=== PATIENT | female | born 1990 | race Caucasian/White ===

== ENCOUNTER 2025-01-30 23:00 | Inpatient (IN) | payer OTHER, SELFPAY ==
[2025-01-30 18:59] VITALS: BP 150/110
[2025-01-30 19:31] LABS: % Basophils 0.4 % (0-2); % Eosinophils 2.1 % (0-6); % Immature Granulocytes 0.4 % (0-0.5); % Monocytes 8.1 % (1.7-9.3); Absolute Eosinophils 0.2 10^3/uL (0-0.7); Absolute Lymphocytes 2.5 10^3/uL (1.2-3.4); Absolute Monocytes 0.7 10^3/uL (0.1-0.6); Absolute Neutrophils 4.7 10^3/uL (1.4-6.5); Hematocrit 38.7 % (37.0-47.0); Hemoglobin 12.7 g/dL (12.0-16.0); Mean Corp Hgb Conc. 32.8 g/dL (33.0-37.0); Mean Corpuscular Hgb 27.7 pg (27.0-31.0); Mean Corpuscular Volume 84.5 fL (81.0-99.0); Mean Platelet Volume 10.3 fL (7.4-10.4); Nucleated Red Blood Cells % 0 %; Platelet Count 315 10^3/uL (130-400); Red Blood Cell Count 4.58 10^6/uL (4.20-5.40); Red Cell Dist. Width 14.6 % (11.5-14.5); White Blood Cell Count 8.2 10^3/uL (4.8-10.8)
[2025-01-30 19:39] LABS: Lactic Acid 0.9 mmol/L (0.7-2.0)
[2025-01-30 19:42] LABS: HCG, Serum Qualitative Screen Negative
[2025-01-30 19:47] LABS: ALT (SGPT) 509 U/L (0-35); AST (SGOT) 102 U/L (14-36); Alkaline Phosphatase 218 U/L (38-126); Blood Urea Nitrogen 9 mg/dl (7-17); Calcium 9.2 mg/dl (8.4-10.2); Carbon Dioxide 22 mmol/L (22-30); Chloride 111 mmol/L (98-107); Glucose 104 mg/dl (70-99); Lipase 134 U/L (23-300); Potassium 4.2 mmol/L (3.5-5.1); Sodium 141 mmol/L (135-145); Total Bilirubin 2.5 mg/dl (0.2-1.3); Total Protein 7.1 g/dl (6.3-8.2); eGFR > 60.00
[2025-01-30 19:50] LABS: Urine Albumin Negative (Neg - Trace); Urine Bilirubin Negative (Negative); Urine Character Clear (Clear); Urine Color Yellow; Urine Glucose Negative (Negative); Urine Ketone Negative (Negative); Urine Leukocyte Negative (Negative); Urine Nitrite Negative (Negative); Urine Occult Blood Negative (Negative); Urine Specific Gravity 1.005 (<1.030); Urine Urobilinogen Negative (Neg - 1+)
[2025-01-30] MEDS: TORADOL 15 MG IV (21:14)
[2025-01-30] MEDS: NSS 1000 IV (21:15)
[2025-01-30 21:39] LABS: Direct Bilirubin 1.8 mg/dl (0.0-0.4)
--- NOTE | 2025-01-30 21:48 | ED.GENMED ---
History of Present Illness
General
Chief Complaint: Post Operative Problem(s)
Source: patient
Exam Limitations: none
Time Seen by Provider: 01/30/25 20:44
Nursing documentation reviewed up to this point in time: agreed with
History of Present Illness
History of Present Illness:
Patient is a 34-year-old female currently 4 days postop laparoscopic cholecystectomy presenting to the emergency department with worsening abdominal discomfort and prior. Patient states cholecystectomy was performed on at [facility] with
Dr. Maza. Surgery was uncomplicated and patient was discharged on Thursday. She states that yesterday she started with pruritus of her hands and face which was worse today. She also reports epigastric/right upper quadrant pain with radiation to
back. Patient spoke with her general surgeon who referred her to the emergency department with concerns of a CBD stone and need for ERCP. Patient denies any fever, chills, or vomiting. No current nausea. No chest pain or shortness of breath.
Patient states that her incisions seem to be healing well.
Patient's general surgeon/GI doctor does not perform ERCPs.
Review of Systems
Review of Systems
Allergies reviewed?: Yes
All Other Systems: ROS reviewed and negative except as documented in HPI and ROS
Phy Exam
Physical Exam
Physical Exam:
Vitals: Hypertensive, otherwise vital signs stable. Afebrile
General: Patient is well appearing, no acute distress. Nontoxic appearing
Skin: Laparoscopic abdominal incision sites C/D/I without evidence of surrounding cellulitis. No rash. No jaundice
Head: Normocephalic, atraumatic
Eyes: Sclera nonicteric. EOMs intact. No nystagmus.
Throat: Protecting airway
Neck: Normal ROM, no cervical spine tenderness, no meningismus
Cardiac: Regular rate and rhythm, no murmurs.
Pulm: Normal respiratory effort, no wheezes, rales, rhonchi heard on exam
.
Abdomen: Abdomen soft. Mild tenderness in right upper quadrant. No rebound tenderness or guarding. Well-healing surgical scars.
Extremities: No evidence of cyanosis or edema. DP pulses palpable bilaterally
Neuro: AAOx3. Grossly intact.
Psychiatric: Normal affect.
Course
Orders/Labs/Results
Orders:
Orders
01/30/25 19:04
Test Result ONCE
01/30/25 19:11
Complete Blood Count/With Diff Urgent
Comprehensive Metabolic Panel Urgent
Direct Bilirubin Urgent
Comment: ADD ON
HCG, Serum Qualitative Screen Urgent
Lactic Acid Urgent
Lipase Urgent
Urinalysis Reflex To Culture Urgent
Date Specimen was Collected: 01/30/25
Time Specimen was Collected: 19:04
Blood Culture Urgent
YOMI Source: Blood/Venous
Specimen Description:
Date Specimen was Collected: 01/30/25
Time Specimen was Collected: 19:04
01/30/25 19:32
US Abdomen Complete/Upper Urgent
Comment:
Reason For Exam: epigastric pain, dark urine, concern for cbd stone
01/30/25 20:54
Add On- LAB Urgent
Tests Added?: direct bili
0.9% Sodium Chloride 1000 ml [Nss] 1,000 ml IV BOLUS
Ketorolac [Toradol] 15 mg IV NOW STA
01/30/25 21:48
Diphenhydramine [Benadryl] 25 mg PO NOW STA
01/30/25 22:11
Morphine Sulfate 4 mg IV NOW STA
Ondansetron Injectable [Zofran] 4 mg IV NOW STA
01/30/25 22:21
Admit/Transfer Patient As Directed
Co-Sign Provider:
Level of Care: Inpatient admission
Assign to:: Medical/Surgical
Physician / Group: Kamilla
Diagnosis: biliary obstruction
Reason for Hospitalization: biliary obstruction
Expected length of stay greater than two midnights?: Yes
ELOS- Estimated Length of Stay in days: 2
I certify the patient meets the requirements for IP care: Yes
PRN Pain Medication Management As Directed
May give lesser potent ordered pain med per pt: Yes
preference::
Protocol:: Medication orders for pain may be administered in a
manner that supports deferring to patient preference
when the pt is:
- Requesting an ordered lesser potent pain medication.
Least to most potent pain medications are defined
as: acetaminophen < NSAID < tramadol < opioids
(morphine, oxycodone, hydromorphone).
- Requesting a lesser dose of the same medication IF
ORDERED.
- Requesting a less intrusive route of administration
if both routes are prescribed by the provider (PO <
IV).
01/30/25 22:22
Code Status As Directed
Resuscitation Status: Full Code
Abnormal Lab Results
01/30/25
19:11
MCHC 32.8 L g/dL
(33.0-37.0)
RDW 14.6 H %
(11.5-14.5)
Absolute Monos (auto) 0.7 H 10^3/uL
(0.1-0.6)
Chloride 111 H mmol/L
(98-107)
Glucose 104 H mg/dl
(70-99)
Total Bilirubin 2.5 H mg/dl
(0.2-1.3)
Direct Bilirubin 1.8 H mg/dl
(0.0-0.4)
AST 102 H U/L
(14-36)
ALT 509 H* U/L
(0-35)
Alkaline Phosphatase 218 H U/L
(38-126)
01/30/25 19:11
01/30/25 19:11
Vital Signs
Initial and Last Documented VS:
Initial Vital Signs
Temp Pulse Resp BP Pulse Ox
98.1 F 74 20 150/110 99
01/30/25 18:59 01/30/25 18:59 01/30/25 18:59 01/30/25 18:59 01/30/25 18:59
Last Documented Vital Signs
Temp Pulse Resp BP Pulse Ox
98.1 F 58 18 134/64 98
01/30/25 22:04 01/30/25 22:04 01/30/25 22:04 01/30/25 22:04 01/30/25 22:04
MDM/Problems Addressed
Differential Diagnosis Includes:
Not limited to: cholestasis, choledocholithiasis, cholangitis, post-operative complication, etc
MDM/Problems Addressed:
34-year-old female currently 3 days postop laparoscopic cholecystectomy presenting with worsening upper abdominal pain and pruritus x 2 days. No associated fever or vomiting. Sent by general surgeon, Dr. Maza at [place] with concern for
possible CBD stone. Hypertensive on arrival, otherwise vital stable. She is afebrile. Physical exam as above. Patient has well-healing laparoscopic abdominal incisions without signs of surrounding cellulitis. She has mild to moderate tenderness
in right upper quadrant without rebound tenderness or guarding. Cardio/pulmonary assessment unremarkable. Given recent cholecystectomy and new onset abdominal pain prior to/concern for cholestasis and possible obstructing CBD stone. Labs and
ultrasound obtained in triage. CBC without clinically significant abnormalities. No leukocytosis. CMP reveals elevated total bilirubin to 2.5 as well as elevated liver enzymes including AST 102 and ALT 509 with an alkaline phosphatase of 218.
Lipase is normal. Urine unremarkable. Ultrasound report pending. Will give IV fluids and treat pain.
Update: Ultrasound report shows a distended CBD of 9.5 mm. Concern for choledocholithiasis. Pruritus likely secondary to cholestasis. Patient will require admission for MRCP and possible ERCP. No evidence of current infectious process. Will
hold antibiotics this time. Patient accepted to hospitalist service in stable condition. GI aware.
Chronic conditions affecting care:
Recent cholecystectomy
Acute Exacerbation and/or Progression of Chronic Illness:
Acute cholestasis with concern for choledocholithiasis
*Radiology
Radiology exam reviewed: radiology read reviewed
*Pulse Oximetry
Patient hypoxic: no
*EKG
Interpreted by ED Provider?: NA
*Land Commissioner Interpretation
Rate: Land Commissioner- N/A
*Critical Care Note
Total Time (30-74mins, 75-104mins- exclusive of procedures): Not Applicable
Data Reviewed
Review of Other/Old Records Reveals: Labs (Labs performed 01/27/2025 at [facility]-total bilirubin 1.0, direct bilirubin 0.5, ALT 491, AST 461, alk phos 192)
Patient Management
Discussion with other providers: Hospitalist and Travel Ticketing Reviewer (Case discussed with GI)
Escalation/DeEscalation of care consider admission/obs:
Admit for MRCP, possible ERCP
ED Attending Note
-
Portions of this chart may have been created with voice recognition software.� Occasional wrong word or��sound alike� substitutions may have occurred due to the inherent limitations of voice recognition software.
Discharge Plan
Departure
Patient Disposition: Admit
Date of Disposition: 01/30/25
Time of Disposition: 21:57
Presentation/result/management discussed w/ accepting MD/DO: Hospitalist
Discharge Problem:
Abdominal pain, Elevated transaminase level, Hyperbilirubinemia
Interventions
Interventions:
*Risk Screen - Suicide Last Done: 01/30/25 21:32
*General Assessment Last Done: 01/30/25 18:59
*Neglect/Abuse Screening Last Done: 01/30/25 21:32
*ED- Fall Risk Assessment Last Done: 01/30/25 21:32
*ED COVID-19 Vaccine History Last Done: 01/30/25 21:32
JW-Srohgk-Qrqdmopcab Assessment Last Done: 01/30/25 21:32
ED-Skin Assessment Last Done: 01/30/25 21:32
[2025-01-30] MEDS: BENADRYL 25 MG PO (22:02)
[2025-01-30 22:04] VITALS: BP 134/64
--- NOTE | 2025-01-30 22:32 | HPS.HSE ---
Family Physician
-
Family Physician: Jeovany Knight,DO
Chief Complaint
-
Postoperative abdominal pain
History of Present Illness
This is a 34-year-old female with past medical history significant for hypertension, GERD, obesity status post cholecystectomy 4 days ago at [facility] by Dr. Maza who presents to the emergency department with pruritus and abdominal discomfort.
Patient reported that she was discharged home on oxycodone which she has not had to take. She did not require any antibiotics after discharge. She was doing well up until 2 days ago when she started having upper abdominal/epigastric discomfort
with pruritus. She denies any fevers or chills. She denies any nausea or vomiting. She reported symptoms to Dr. Morales referred for admission for likely MRCP.
In the emergency department she was afebrile, blood pressure was 130/64 with a pulse of 68 and she was satting 98% on room air.
CBC was completely normal. Electrolytes BUN/creatinine were all normal. Lactic acid was normal. Total bilirubin was elevated at 2.5, direct bilirubin 1.8. AST 102 ALT 500 and alk phos was also elevated. UA was unremarkable.
Abdominal ultrasound showing distended common bile duct, 9.5 mm. Hepatosplenomegaly. Coarse hepatic echotexture with marked diminished sound transmission, suggesting diffuse fibrofatty changes. Retroperitoneum largely obscured by bowel gas.
Medical History
Past Medical History
Past Medical History: Reports GERD, HTN and Psychiatric
Past Surgical History: Reports Cholecystectomy, Tonsilectomy and Other (Maxillofacial/jaw surgery)
Social History
Tobacco: Smoker
Alcohol: None
Drug: None
Family History
Family History: Not pertinent
Allergies / Home Medications
Allergies reflects when Allergies were last updated in [employer].
Home Medications with original date entered in [employer]
Allergy/Medication List:
Allergies
Allergy/AdvReac Type Severity Reaction Status Date / Time
No Known Allergies Allergy Unverified 01/30/25 18:59
Lexapro 20 mg tablet, 20 mg p.o. daily
Losartan 100 mg tablet, 100 mg p.o. daily
Omeprazole 20 mg tablet, 20 mg p.o. daily,
Review of Systems
-
History Source: Patient
Constitutional: Reports No Symptoms
EENT: Reports No Symptoms
Respiratory: Reports No Symptoms
Cardiac: Reports No Symptoms
Abdomen/GI: Reports Abdominal Pain
: Reports No Symptoms
Musculoskeletal: Reports No Symptoms
Skin: Reports Itching
Neurological: Reports No Symptoms
Endocrine: Reports No Symptoms
Hematologic/Lymphatic: Reports No Symptoms
Psych: Reports No Symptoms
Physical Exam
Vital Signs
Vital Signs
Temp Pulse Resp BP Pulse Ox
98.1 F 58 18 134/64 98
01/30/25 22:04 01/30/25 22:04 01/30/25 22:04 01/30/25 22:04 01/30/25 22:04
Physical Exam
General: Well Developed, Well Nourished and Conversant
HEENT: NormoCephalic, Anicteric, Moist mucous membranes and Atraumatic
Respiratory: Clear
Cardiac: S1/S2 and Regular Rhythm
Breast: Deferred by me
GI: Soft, Non Distended, Normal Bowel Sounds and Tender
Rectal: Deferred by Provider
Genito-urinary: Deferred by me
Musculoskeletal: No Clubbing, No Cyanosis and No Edema
Skin: Warm
Neuro: AO x 3 and Nonfocal/grossly intact
Hematologic/Lymphatic: No Lymphadenopathy
Psych: Calm
Laboratory Results
-
01/30/25 19:11
01/30/25 19:11
Laboratory Results
Lactic Acid 0.9 mmol/L (0.7-2.0) 01/30/25 19:11
Total Bilirubin 2.5 mg/dl (0.2-1.3) H 01/30/25 19:11
AST 102 U/L (14-36) H 01/30/25 19:11
ALT 509 U/L (0-35) H* 01/30/25 19:11
Alkaline Phosphatase 218 U/L (38-126) H 01/30/25 19:11
Lipase 134 U/L (23-300) 01/30/25 19:11
Data Reviewed
-
Ultrasound: Report Reviewed by me
Lab Data: Labs Reviewed by me
Old Records: Reviewed
Impression/Plan
-
IMPRESSION:
This is a 34-year-old female who is 4 days status post cholecystectomy presenting to the emergency department with epigastric discomfort radiating to the back and pruritus found to have a cholestatic picture with biliary ductal dilation consistent
with common bile duct obstruction. Lipase is negative. LFTs marginally abnormal. Total bilirubin was 2.5 direct of 1.8. Pain is improved with analgesics and patient is well-appearing without any fevers. She has no leukocytosis. No evidence of
acute cholangitis at this time.
PLAN:
Cholestasis with pruritus - unlikely biloma, possibly choledocholithiasis with a left behind stone.
- admit to med/surg
- NPO after midnight
- mrcp, possible ercp
- pain control, benadryl, antiemetics and IV fluids
- continue home antihypertensives for now
- trend lefts
- GI consulted and aware
DVT PPX - lovenox sq
Code status - Full Code
[2025-01-30] MEDS: ZOFRAN 4 MG IV (22:42)
[2025-01-30] MEDS: MORPHINE SULFATE 4 MG IV (22:42)
[2025-01-30 22:50] VITALS: BMI 60.1
[2025-01-31] VITALS (8 sets, daily range): BP systolic 104–163; BP diastolic 49–81; BMI 58.7
[2025-01-31] MEDS: MORPHINE SULFATE 2 MG IV ×4 (01:16→23:15)
[2025-01-31] MEDS: LR 1000 IV ×2 (01:16→12:31)
[2025-01-31] MEDS: TORADOL 15 MG IV ×3 (04:35→19:09)
[2025-01-31] MEDS: BENADRYL 25 MG IV ×2 (04:39→10:19)
[2025-01-31 05:40] LABS: Hematocrit 34.5 % (37.0-47.0); Hemoglobin 11.5 g/dL (12.0-16.0); Mean Corp Hgb Conc. 33.3 g/dL (33.0-37.0); Mean Corpuscular Hgb 28.3 pg (27.0-31.0); Mean Platelet Volume 10.3 fL (7.4-10.4); Platelet Count 263 10^3/uL (130-400); Red Blood Cell Count 4.06 10^6/uL (4.20-5.40); Red Cell Dist. Width 14.6 % (11.5-14.5); White Blood Cell Count 6.9 10^3/uL (4.8-10.8)
[2025-01-31 05:54] LABS: ALT (SGPT) 373 U/L (0-35); AST (SGOT) 66 U/L (14-36); Albumin 3.5 g/dl (3.5-5.0); Alkaline Phosphatase 212 U/L (38-126); Blood Urea Nitrogen 7 mg/dl (7-17); Calcium 8.6 mg/dl (8.4-10.2); Carbon Dioxide 20 mmol/L (22-30); Chloride 114 mmol/L (98-107); Direct Bilirubin 0.8 mg/dl (0.0-0.4); Estimated Creatinine Clearance > 125 ml/min; Glucose 103 mg/dl (70-99); Magnesium 1.8 mg/dl (1.6-2.3); Potassium 4.3 mmol/L (3.5-5.1); Sodium 138 mmol/L (135-145); Total Bilirubin 1.5 mg/dl (0.2-1.3); Total Protein 6.2 g/dl (6.3-8.2); eGFR > 60.00
--- NOTE | 2025-01-31 06:58 | CON.GI ---
Addendum entered and electronically signed by Wagner Hensley MD 01/31/25 13:41:
I saw and examined the patient.
The CELLAR PACKER or PA's note was reviewed and I agree with the note.
Comment: 34yo morbidly obese female presented to [facility] with epigastric/back pain and had lap rudolph 01/26. After d/c she noted dark urine and itching. She also had some recurrence of back pain. Denies f/c, n/v. Her surgeon directed her to ER
since [facility] does not offer ERCP. TB 2.5, AST 102, ALT 509, AP 218 on admission. Normal WBC. US show CBD 9.5mm distended. MRCP shows 3mm distal CBD stone. Pain controlled with meds
REC:
Plan ERCP when available to treat choledocholithiasis
Zo no need for abx with normal WBC, afebrile, benign abdomen
Trend LFTs
Addendum entered and electronically signed by TAMEKA Patiño 01/31/25 11:30:
MRI with small stone in distal CBD with mild extrahepatic biliary dilatation -- will need ERCP --possible later today if time allow.
Original Note:
Consultation
-
Date/Time Consultation Requested: 01/31/25 0100
Date/Time Consultation Performed: 01/31/25 0730
Requesting Provider: Roxi Kohli MD
Performing Provider: TAMEKA Bay, Wagner Hensley MD
Reason for Consultation: abdominal pain increased LFT's
Medical History
Chief Complaint / HPI
Chief Complaint: abdominal pain
History of Present Illness:
Pt is a 34yo with hx GERD, HTN, axiety, obesity with Zepbound use and 90 lbs wt loss with recent admission to [place] 01/25-01/27 with cholecystectomy 01/26 prior to admission. After being home for 2 days developed abdominal pain with itching. On
admission normal WBC without fever and bili 2.5, AST 102, ALT 509, alk phos 218 with lipase 134. 5/12 US with Hepatosplenomegaly. Coarse hepatic echotexture with marked diminished sound transmission, suggesting diffuse fibrofatty changes. Distended
common bile duct, 9.5 mm. Retroperitoneum largely obscured by bowel gas.
In reviewed with patient she admits to nausea and vomiting prior to rudolph now improved. She states pain is 6/10 then 1/10 after pain meds. Pain in RUQ. She also admits to dark urine and roger stools for 2 day with itchiness. She denies
dysphagia, GERD, or rectal bleeding. Was taking Motrin and Tylenol for post-op pain.
Past Medical History
Past Medical History: GERD, HTN, Psychiatric (anxiety ) and Other (obesity )
Past Surgical History: Cholecystectomy (4 days prior to admission at [place])
Social History
Tobacco: Smoker (social )
Alcohol: None
Drug: None
Personal:
Living: With Family
Family History
Family History: Other (mother with hx rudolph )
Allergies / Home Medications
Allergy/AdvReac Type Severity Reaction Status Date / Time
No Known Allergies Allergy Unverified 01/30/25 18:59
�Medication �Instructions �Recorded
escitalopram oxalate 20 mg tablet 20 mg PO HS 01/30/25
(Lexapro)
fexofenadine 180 mg tablet 180 mg PO HS 01/30/25
letrozole 2.5 mg tablet 5 mg PO DAILY 01/30/25
losartan 100 mg tablet 100 mg PO HS 01/30/25
omeprazole 20 mg capsule,delayed 20 mg PO HS 01/30/25
release
tirzepatide (weight loss) 10 10 mg SC QWEEK 01/30/25
mg/0.5 mL subcutaneous pen
injector (Zepbound)
Review of Systems
-
History Source: Patient
Constitutional: Reports Weight Loss ( 90 lb with zepbound )
EENT: Reports No Symptoms
Respiratory: Reports No Symptoms
Abdomen/GI: Reports Abdominal Pain and Other (roger stools )
: Reports Dark Urine
Skin: Reports Itching
Neurological: Reports No Symptoms
Endocrine: Reports No Symptoms
Hematologic/Lymphatic: Reports No Symptoms
Vital Signs
Temp Pulse Resp BP Pulse Ox
97.8 F 63 18 141/81 98
01/31/25 01:03 01/31/25 01:03 01/31/25 01:03 01/31/25 01:03 01/31/25 01:03
Physical Exam
Exam
General: Well Developed, Well Nourished and No Apparent Distress
HEENT: Normocephalic and Anicteric
Respiratory: Clear
Cardiac: Regular Rhythm
GI: Soft, Non Distended, Tender (minimal after pain meds ) and Other (post surg sites intact )
Musculoskeletal: No Clubbing and No Cyanosis
Skin: Warm and Dry
Neuro: Awake, Alert and AO x 3
Psych: Calm
Results
WBC 6.9 10^3/uL (4.8-10.8) 01/31/25 05:12
Hgb 11.5 g/dL (12.0-16.0) L 01/31/25 05:12
Hct 34.5 % (37.0-47.0) L 01/31/25 05:12
MCV 85.0 fL (81.0-99.0) 01/31/25 05:12
Plt Count 263 10^3/uL (130-400) 01/31/25 05:12
Absolute Neuts (auto) 4.7 10^3/uL (1.4-6.5) 01/30/25 19:11
Sodium 138 mmol/L (135-145) 01/31/25 05:12
Potassium 4.3 mmol/L (3.5-5.1) 01/31/25 05:12
Chloride 114 mmol/L (98-107) H 01/31/25 05:12
Carbon Dioxide 20 mmol/L (22-30) L 01/31/25 05:12
BUN 7 mg/dl (7-17) 01/31/25 05:12
Creatinine 0.6 mg/dL (0.6-1.0) 01/31/25 05:12
Calcium 8.6 mg/dl (8.4-10.2) 01/31/25 05:12
Total Bilirubin 1.5 mg/dl (0.2-1.3) H D 01/31/25 05:12
AST 66 U/L (14-36) H 01/31/25 05:12
ALT 373 U/L (0-35) H 01/31/25 05:12
Alkaline Phosphatase 212 U/L (38-126) H 01/31/25 05:12
Lipase 134 U/L (23-300) 01/30/25 19:11
Diagnostic Image Results:
01/30/25 US Abdomen Complete/Upper
Hepatosplenomegaly. Coarse hepatic echotexture with marked diminished sound transmission, suggesting diffuse fibrofatty changes. Distended common bile duct, 9.5 mm. Retroperitoneum largely obscured by bowel gas.
Prior GI Procedures:
EGD:
Colonoscopy:
Assessment / Plan
-
Pt is a 34yo with hx GERD, HTN, anxiety, obesity with Zepbound use and 90 lbs wt loss with recent admission to [place] 01/25-01/27 with cholecystectomy 01/26 prior to admission. After being home for 2 days developed abdominal pain with itching. On
admission normal WBC without fever and bili 2.5, AST 102, ALT 509, alk phos 218 with lipase 134. 01/30 US with Hepatosplenomegaly. Coarse hepatic echotexture with marked diminished sound transmission, suggesting diffuse fibrofatty changes. Distended
common bile duct, 9.5 mm. Retroperitoneum largely obscured by bowel gas.
bili AST ALT alk phos
01/25 0.8 221 142 122
01/27 1 461 491 192
01/30 2.1 106 481 279
01/30 2.5 102 509 218
01/31 1.5 66 373 212
-abdominal pain
-increased LFT's
-s/p rudolph at [facility] 01/26 prior to admission
other med problems:
-GERD
-HTN
-anxiety
-obesity- with recent wt loss on Zepbound prior to admission
PLAN:
Etiology of symptoms related to retained CBD stone vs other
plan for MRCP if + for retained stone will need ERCP-- timing to be determined
labs as noted above
NPO
IVF
pain control
last Zepbound 3 weeks ago cont to hold
-
-
Thank you for consultation and allowing me to participate in the patient's care. Please call the community relations coordinator GI physician during the after hours with any questions or concerns.
--- NOTE | 2025-01-31 08:02 | W.PN.HOSP.TC ---
Today's Communication/Plan
-
See PN
Assessment / Plan
Assessment / Plan
34yo F with HTN, anxiety, after recent cholecystectomy in [place] 4 days before admision done due to biliary colic came with worsening itchiness and mid-back pain, noted with distended CBD on US and LFT elevation with concern for choledocholithiasis
A/P:
#Choledocholithiasis
No fever, no leukocytosis, no clinical criteria for cholangitis
IVF
NPO pending MRCP
GI consult
benadryl PRN
FOllow LFT
#Mild anemia
OP follow up with PCP
#Essential HTN
#Anxiety
Cont home meds
#Morbid obesity
BMI 58.7
Advise weight loss
DVT ppx hep
FUll code
I have spent at least 57min reviewing chart, test results, communication with consultants and providing direct patient care
Anticipated Discharge: 24 - 48 hours
Subjective/Interval History
-
Date of Service: January 31, 2025
Objective Data
-
Labs:
Laboratory Results
01/31/25
05:12
WBC 6.9
Hgb 11.5 L
Hct 34.5 L
Plt Count 263
Sodium 138
Potassium 4.3
Chloride 114 H
Carbon Dioxide 20 L
BUN 7
Creatinine 0.6
Glucose 103 H
Calcium 8.6
Total Bilirubin 1.5 H D
AST 66 H
ALT 373 H
Alkaline Phosphatase 212 H
Vital Signs:
Vital Signs
Temp Pulse Resp BP Pulse Ox
97.9 F 56 14 104/57 98
01/31/25 07:37 01/31/25 07:37 01/31/25 07:37 01/31/25 07:37 01/31/25 07:37
Review of Systems
-
History Source: Patient
All other systems: Reviewed and negative
Skin: Reports Itching
Physical Exam
-
General: No Apparent Distress
HEENT: Normocephalic
Respiratory: Clear to Auscultation
Cardiac: Regular Rhythm
GI: Soft, Nondistended and Tender (RUQ)
Genito-urinary: No Costovertebral Tender
Musculoskeletal: No Clubbing, No Cyanosis and No Edema
Skin: Warm
Neuro: Awake, Alert, Oriented and AO x 3
Psych: Calm
[2025-01-31] MEDS: ZOFRAN 4 MG IV (08:16)
[2025-01-31] MEDS: HEPARIN 5000 UNITS SC (09:02)
[2025-01-31] MEDS: NSS (PRESERVATIVE FREE) 10 ML IV (09:02)
[2025-01-31] MEDS: PROTONIX IV 40 MG IV (09:02)
--- NOTE | 2025-01-31 14:17 | CM ---
CM reviewed chart, patient seen bedside, initial assessment completed. Patient resides in a two level home, one step to enter, with her , daughter, mother, and father. Patient denies the use of DME, denies VN/SNF history. Patient confirms PCP
Jeovany Knight, [facility]. Patient denies needs at this time. CM will continue to follow for all discharge planning needs.
Plan; home no needs likely
[2025-01-31] MEDS: LEXAPRO 20 MG PO (21:35)
[2025-01-31] MEDS: COZAAR 100 MG PO (21:35)
[2025-02-01] MEDS: LR 1000 IV (01:58)
[2025-02-01] MEDS: TORADOL 15 MG IV (03:43)
[2025-02-01 05:44] LABS: Hematocrit 35.4 % (37.0-47.0); Hemoglobin 11.7 g/dL (12.0-16.0); Mean Corp Hgb Conc. 33.1 g/dL (33.0-37.0); Mean Corpuscular Hgb 27.6 pg (27.0-31.0); Mean Corpuscular Volume 83.5 fL (81.0-99.0); Mean Platelet Volume 10.4 fL (7.4-10.4); Platelet Count 259 10^3/uL (130-400); Red Blood Cell Count 4.24 10^6/uL (4.20-5.40); Red Cell Dist. Width 14.4 % (11.5-14.5); White Blood Cell Count 8.6 10^3/uL (4.8-10.8)
[2025-02-01 06:14] LABS: ALT (SGPT) 297 U/L (0-35); AST (SGOT) 79 U/L (14-36); Albumin 3.3 g/dl (3.5-5.0); Alkaline Phosphatase 217 U/L (38-126); Blood Urea Nitrogen 10 mg/dl (7-17); Calcium 9.1 mg/dl (8.4-10.2); Carbon Dioxide 21 mmol/L (22-30); Chloride 111 mmol/L (98-107); Estimated Creatinine Clearance > 125 ml/min; Glucose 172 mg/dl (70-99); Potassium 4.4 mmol/L (3.5-5.1); Sodium 138 mmol/L (135-145); Total Bilirubin 2.5 mg/dl (0.2-1.3); Total Protein 6.2 g/dl (6.3-8.2); eGFR > 60.00
[2025-02-01 07:32] VITALS: BP 146/71
[2025-02-01] MEDS: TYLENOL 650 MG PO (08:24)
[2025-02-01] MEDS: NSS (PRESERVATIVE FREE) 10 ML IV (08:25)
[2025-02-01] MEDS: PROTONIX IV 40 MG IV (08:25)
[2025-02-01] MEDS: LR IV (08:59)
--- NOTE | 2025-02-01 10:15 | W.PN.GI.CBS2 ---
Today's Communication / Plan
-
Bili up a little 2.5 but AST/ALT stable
Low fat diet
OK for d/c
Check repeat LFTs next week
Assessment / Plan
-
Pt is a 34yo with hx GERD, HTN, anxiety, obesity with Zepbound use and 90 lbs wt loss with recent admission to [facility] 01/25-01/27 with cholecystectomy 01/26 prior to admission. After being home for 2 days developed abdominal pain with itching. On
admission normal WBC without fever and bili 2.5, AST 102, ALT 509, alk phos 218 with lipase 134. 01/30 US with Hepatosplenomegaly. Coarse hepatic echotexture with marked diminished sound transmission, suggesting diffuse fibrofatty changes. Distended
common bile duct, 9.5 mm. Retroperitoneum largely obscured by bowel gas.
bili AST ALT alk phos
01/25 0.8 221 142 122
01/27 1 461 491 192
01/30 2.1 106 481 279
01/30 2.5 102 509 218
01/31 1.5 66 373 212
Impression:
-CBD stone s/p ERCP stone extraction 01/31
-s/p rudolph at [facility] 01/26 prior to admission
Subjective
Subjective
Date of Service: February 01, 2025
Feels well. Denies abd pain
Objective
Data Reviewed
Laboratory Data:
Laboratory Results
02/01/25 05:14
02/01/25 05:14
Laboratory Results
Magnesium 1.8 mg/dl (1.6-2.3) 01/31/25 05:12
Total Bilirubin 2.5 mg/dl (0.2-1.3) H D 02/01/25 05:14
AST 79 U/L (14-36) H 02/01/25 05:14
ALT 297 U/L (0-35) H 02/01/25 05:14
Alkaline Phosphatase 217 U/L (38-126) H 02/01/25 05:14
Lipase 134 U/L (23-300) 01/30/25 19:11
Vital Signs and I&O:
Vital Signs
Temp Pulse Resp BP Pulse Ox
98.1 F 47 16 146/71 98
02/01/25 07:32 02/01/25 07:32 02/01/25 07:32 02/01/25 07:32 02/01/25 07:32
I&O
01/31/25 02/01/25 02/02/25
06:59 06:59 06:59
Intake Total 100 / 100
Balance 100 / 100
Physical Exam
Physical Exam
GI: Soft, Non Distended and Non Tender
--- NOTE | 2025-02-01 10:19 | W.PN.HOSP.TC ---
Today's Communication/Plan
-
dc
Assessment / Plan
Assessment / Plan
34yo F with HTN, anxiety, after recent cholecystectomy in [facility] 4 days before admission done due to biliary colic came with worsening itchiness and mid-back pain, noted with distended CBD on US and LFT elevation with concern for
choledocholithiasis. S/P ERCP on 02/01/25: Choledocholithiasis was found Complete removal was accomplished by biliary sphincterotomy and balloon extraction. Itchiness and RUQ dyscomfort resolved next day. Medically stable to be d/c home as agreed
with GI. LFT with PCP in 1 week recommended in discharge instructions
A/P:
#Choledocholithiasis
No fever, no leukocytosis, no clinical criteria for cholangitis
IVF
GI consult: s/p ERCP and stone extraction
benadryl PRN
FOllow LFT
#Mild anemia
OP follow up with PCP
#Essential HTN
#Anxiety
Cont home meds
#Morbid obesity
BMI 58.7
Advise weight loss
DVT ppx hep
FUll code
I have spent at least 37min reviewing chart, test results, communication with consultants and providing direct patient care
Anticipated Discharge: Today
Subjective/Interval History
-
Date of Service: February 01, 2025
Objective Data
-
Labs:
Laboratory Results
02/01/25
05:14
WBC 8.6
Hgb 11.7 L
Hct 35.4 L
Plt Count 259
Sodium 138
Potassium 4.4
Chloride 111 H
Carbon Dioxide 21 L
BUN 10
Creatinine 0.6
Glucose 172 H
Calcium 9.1
Total Bilirubin 2.5 H D
AST 79 H
ALT 297 H
Alkaline Phosphatase 217 H
Vital Signs:
Vital Signs
Temp Pulse Resp BP Pulse Ox
98.1 F 47 16 146/71 98
02/01/25 07:32 02/01/25 07:32 02/01/25 07:32 02/01/25 07:32 02/01/25 07:32
I&O
01/31/25 02/01/25 02/02/25
06:59 06:59 06:59
Intake Total 100 / 100
Balance 100 / 100
Review of Systems
-
History Source: Patient
All other systems: Reviewed and negative
Skin: Denies Itching
Physical Exam
-
General: No Apparent Distress
HEENT: Normocephalic
Respiratory: Clear to Auscultation
GI: Soft, Nontender and Nondistended
Genito-urinary: No Costovertebral Tender
Musculoskeletal: No Clubbing, No Cyanosis and No Edema
Neuro: Awake, Alert, Oriented and AO x 3
Psych: Calm
--- NOTE | 2025-02-01 10:37 | CM ---
MD entered order for discharge.
Spoke with pt she said she was ready for discharge
Offered VN she declined need.
Her Tone will drive her home.
PLAN Home no needs
--- NOTE | 2025-02-01 10:43 | W.DCSUMMARY ---
Discharge Summary
Discharge Data
Date of Admission: 01/30/25
Date of Discharge: 02/01/25
-
Pending Results: No
Hospital Course
34yo F with HTN, anxiety, after recent cholecystectomy in [facility] 4 days before admission done due to biliary colic came with worsening itchiness and mid-back pain, noted with distended CBD on US and LFT elevation with concern for
choledocholithiasis. S/P ERCP on 02/01/25: Choledocholithiasis was found Complete removal was accomplished by biliary sphincterotomy and balloon extraction. Itchiness and RUQ dyscomfort resolved next day. Medically stable to be d/c home as agreed
with GI. LFT with PCP in 1 week recommended in discharge instructions. As per discussion with GI: Pancreatic parenchymal abnormalities consisting of hyperechoic strands and hyperechoic foci were noted in the pancreatic head will not need additional
follow up
I have spent at least 37min reviewing chart, test results, communication with consultants and providing direct patient care
Patient was managed for:
#Choledocholithiasis
#Mild anemia
#Essential HTN
#Anxiety
#Morbid obesity
Discharge Plan
-
Patient Disposition: Home (Routine Discharge)
Discharge Diagnosis/Procedures: CHoledocholithiasis
Diet: Low Fat
Blood Work: LFT in 1 week with family doctor
Referrals:
Jeovany Knight DO [Family Provider] - in less than 1 week (for blood test (LFT))
Prescriptions:
Continued
omeprazole 20 mg Capsule,Delayed Release(Dr/Ec)
20 mg PO HS
losartan 100 mg Tablet
100 mg PO HS
escitalopram oxalate [Lexapro] 20 mg Tablet
20 mg PO HS
Zepbound 10 mg/0.5 mL Pen Injector
10 mg SC QWEEK
Rx Instructions:
thursday nights
fexofenadine 180 mg tablet
180 mg PO HS
ibuprofen 600 mg tablet
600 mg PO TIDPRN PRN (Reason: pain)
Discharge Orders:
Discharge Patient (As Directed); Ordered 02/01/25
Ordered By: Herbert Arciniega
Discharge Date and Time
Print Language: MAURITIAN
== END 2025-02-01 11:11 | disposition home or self-care (01) | DRG 445 ==
LOC: 3 WEST ACU 23:00
PROVIDERS: Nurse Practitioner Adult Health; Student in an Organized Health Care Education/Training Program; ADMITTING PHYSICIAN Internal Medicine; ATTENDING PHYSICIAN Internal Medicine; CONSULT PHYSICIAN Specialist; EMERGENCY PHYSICIAN Emergency Medicine; FAMILY PHYSICIAN Anesthesiology
DX: K80.51 Calculus of bile duct without cholangitis or cholecystitis with obstruction (principal); Z68.43 Body mass index [BMI] 50.0-59.9, adult; D64.9 Anemia, unspecified; I10 Essential (primary) hypertension; F41.9 Anxiety disorder, unspecified; E66.01 Morbid (severe) obesity due to excess calories; L29.9 Pruritus, unspecified; F17.200 Nicotine dependence, unspecified, uncomplicated; K21.9 Gastro-esophageal reflux disease without esophagitis; Z79.811 Long term (current) use of aromatase inhibitors; Z90.49 Acquired absence of other specified parts of digestive tract
CPT/HCPCS: 74181; 74330; 76000; 76700; 80053; 81003; 82248; 83605; 83690; 83735; 84703; 85025; 85027; 87040; 96361; 96374; 99285; 99406; C1769